=== PATIENT | male | born 1965 | race Caucasian/White ===

== ENCOUNTER 2018-04-20 11:24 | Observation (INO) ==
[2018-04-20] MEDS ORDERED: Acetaminophen 325 MG TABLET PO ONE (11:50)
--- NOTE | 2018-04-20 11:55 | Emergency Department Note ---
Disposition Clinical Impression: Cellulitis Qualifiers: Site of cellulitis: extremity Site of cellulitis of extremity: lower extremity Laterality: right Qualified Code(s): L03.115 - Cellulitis of right lower limb Disposition: Home, Self-Care Condition: Good Referrals: NONE,PCP [Non-Partnered Physician] - Forms: ED Satisfaction Letter Time of Disposition: 13:21 General Adult HPI - General Chief complaint: ED Fever Stated complaint: Fever/Chills Time Seen by Provider: 04/20/18 11:41 Source: patient Limitations: no limitations Nursing Notes Reviewed: Yes Vital Signs Reviewed: Yes - History of Present Illness HPI Narrative: This is a 52 year-old male with history of CAD s/p CABG who awoke 6 hours ago with fever/chills, associated with pain and redness throughout the right lower extremity (diffusely, hip to foot). He says the pain is similar to what he felt after veins were harvested from the extremity for CABG. He reports nausea but denies any vomiting. Also no cough or urinary symptoms. Pt Subjective Complaint: Fever, Right Lower Extremity Pain Onset (ago): hour(s) (6) Location: lower extremity Radiation: non-radiation Pain Severity: moderate Pain Scale: 7 Quality: burning Consistency: constant Improves with: nothing Worsens with: movement (ambulation) Associated symptoms: Reports: fever/chills. Denies: chest pain, cough, headaches, shortness of breath - Related Data Home Medications Medication Instructions Recorded Confirmed Calcipotriene [Dovonex] 1 appl TP DAILY PRN 10/20/17 04/20/18 Meloxicam [Mobic] 15 mg PO DAILY 10/20/17 04/20/18 Trazodone HCl 50 mg PO HS 10/20/17 04/20/18 Atorvastatin [Lipitor] 40 mg PO HS 04/20/18 04/20/18 Lansoprazole [Prevacid] 30 mg PO DAILY 04/20/18 04/20/18 Metoprolol Succinate [Toprol Xl] 25 mg PO DAILY 04/20/18 04/20/18 Previous Rx's Medication Instructions Recorded Amiodarone [Cordarone] 200 mg PO DAILY #30 tablet 10/26/17 Allergies Allergy/AdvReac Type Severity Reaction Status Date / Time eszopiclone [From [facility]] Allergy Rash Verified 04/20/18 11:27 All systems ED: reviewed and negative except as stated. Constitutional: Reports: fever, chills Cardiovascular: Denies: chest pain Respiratory: Denies: dyspnea Gastrointestinal: Reports: nausea. Denies: abdominal pain, vomiting Genitourinary: Denies: dysuria Musculoskeletal: Denies: joint swelling, arthralgia Integumentary: Reports: other (erythema) Neurological: Denies: headache Past Medical History - Past Medical History Medical history: Reports: pulmonary embolus Surgical history: Reports: cholecystectomy, other (Incisional herniorrhaphy 2) Psychiatric history: Reports: no psych history - Social History Smoking Status: Never smoker Smokeless Tobacco Status: No Alcohol use: Reports: none Drug use: Reports: none Physical Exam - General Limitations: no limitations General appearance: alert, in no apparent distress (comfortable-appearing) - Head Head exam: atraumatic, normocephalic - Eye Eye exam: Present: normal appearance. Absent: conjunctival injection - ENT ENT exam: normal exam - Neck Neck exam: Present: normal inspection. Absent: meningismus - Respiratory Respiratory exam: Present: normal lung sounds bilaterally. Absent: respiratory distress - Cardiovascular Cardiovascular exam: Present: regular rate, normal rhythm, normal heart sounds - Abdominal Exam Abdominal exam: Present: soft, Non-Tender. Absent: distention - Extremities Exam Extremities exam: Present: normal capillary refill, other (patch of erythema medial aspect of distal right thigh, faint erythema distal right mora). Absent : calf tenderness - Neurological Exam Neurological exam: Present: alert, oriented X3. Absent: motor sensory deficit - Psychiatric Psychiatric exam: Present: normal affect, normal mood - Skin Skin exam: Present: warm, dry, intact, erythema (several psoriasis plaques are noted, in addition to new areas of erythema noted above) Course - Reevaluation(s) Reevaluation #1: Updated patient on test results, plans for admission. Patient declined to give urine specimen. Says he will give it upstairs. Time: 13:20 - Consultations Consultation #1: Received call from cardiovascular imaging. DVT study was negative. Time: 13:18 Consultation #2: Reviewed case with Dr. Bowen, and patient accepted for admission. Time: 14:15 Vital Signs Temperature 100.7 F H 04/20/18 11:25 Pulse Rate 76 04/20/18 11:25 Respiratory Rate 18 04/20/18 11:25 Blood Pressure 131/79 04/20/18 11:25 O2 Sat by Pulse Oximetry 97 04/20/18 11:25 Temperature 100.8 F H 04/20/18 13:20 Pulse Rate 69 04/20/18 14:12 Respiratory Rate 16 04/20/18 14:12 Blood Pressure 123/65 04/20/18 14:12 O2 Sat by Pulse Oximetry 96 04/20/18 14:12 Oxygen Delivery Oxygen Delivery Room Air Medical Decision Making - MDM Narrative Medical decision making narrative: Patient presented with acute right lower extremity pain and fever. He has a couple of areas of erythema to the leg, in addition to psoriasis plaques. Distal pulses are normal. DDx includes cellulitis and lymphangitis. Will also r/ o DVT. - Lab Data Result diagrams: 04/20/18 12:05 04/20/18 12:05 Lab Results 04/20/18 04/20/18 04/20/18 Range/Units 12:05 12:05 12:05 WBC 17.1 H (4.3-11.1) K/mcL RBC 5.49 (4.19-5.50) M/mcL Hgb 16.6 (12.9-16.9) g/dL Hct 47.7 (37.5-50.1) % MCV 86.9 (83.0-100.0) fL MCH 30.2 (28.0-33.3) pg MCHC 34.8 (31.6-35.5) g/dL RDW 13.3 (11.5-14.5) % Plt Count 197 (140-400) K/mcL MPV 9.8 (9.4-12.4) fL Immature Gran % 1.0 (0-4) % Seg Neutrophils % 89.7 % Lymphocytes % 2.9 % Monocytes % 6.1 % Eosinophils % 0.1 % Basophils % 0.2 % Neutrophils # 15.3 H (1.6-8.9) K/mcL Lymphocytes # 0.5 L (0.6-4.6) K/mcL Monocytes # 1.1 (0.0-1.3) K/mcL Eosinophils # 0.0 (0.0-0.6) K/mcL Basophils # 0.0 (0.0-0.2) K/mcL ESR 3 (0-10) mm/hr PT 12.2 H (9.4-12.1) Seconds INR 1.1 Sodium (136-145) mEq/L Potassium (3.5-5.1) mEq/L Chloride (98-107) mEq/L Carbon Dioxide (23-29) mEq/L BUN (6-20) mg/dL Creatinine (0.70-1.30) mg/dL Est GFR ( Amer) (> 60) Est GFR (Non-Af Amer) (> 60) BUN/Creatinine Ratio (6-26) Glucose (70-105) mg/dL Calculated Osmolality (280-300) Lactic Acid (0.5-2.2) mmol/L Calcium (8.6-10.3) mg/dL 04/20/18 04/20/18 Range/Units 12:05 12:05 WBC (4.3-11.1) K/mcL RBC (4.19-5.50) M/mcL Hgb (12.9-16.9) g/dL Hct (37.5-50.1) % MCV (83.0-100.0) fL MCH (28.0-33.3) pg MCHC (31.6-35.5) g/dL RDW (11.5-14.5) % Plt Count (140-400) K/mcL MPV (9.4-12.4) fL Immature Gran % (0-4) % Seg Neutrophils % % Lymphocytes % % Monocytes % % Eosinophils % % Basophils % % Neutrophils # (1.6-8.9) K/mcL Lymphocytes # (0.6-4.6) K/mcL Monocytes # (0.0-1.3) K/mcL Eosinophils # (0.0-0.6) K/mcL Basophils # (0.0-0.2) K/mcL ESR (0-10) mm/hr PT (9.4-12.1) Seconds INR Sodium 138 (136-145) mEq/L Potassium 4.6 (3.5-5.1) mEq/L Chloride 104 (98-107) mEq/L Carbon Dioxide 27 (23-29) mEq/L BUN 16 (6-20) mg/dL Creatinine 1.19 (0.70-1.30) mg/dL Est GFR ( Amer) > 60 (> 60) Est GFR (Non-Af Amer) > 60 (> 60) BUN/Creatinine Ratio 13 (6-26) Glucose 135 H (70-105) mg/dL Calculated Osmolality 289 (280-300) Lactic Acid 2.3 H (0.5-2.2) mmol/L Calcium 9.4 (8.6-10.3) mg/dL - Radiology Data Radiology results reviewed: Yes I reviewed the patient's radiology results. XR/XR chest 1V portable IMPRESSION: 1. No evidence of consolidative pneumonia. 2. Persistently enlarged cardiomediastinal silhouette.
[2018-04-20 12:24] LABS: Basophils % 0.2 %; Eosinophils % 0.1 %; Hematocrit 47.7 % (37.5-50.1); Hemoglobin 16.6 g/dL (12.9-16.9); Lymphocytes # 0.5 K/mcL (0.6-4.6); Lymphocytes % 2.9 %; Mean Corpuscular HGB Conc 34.8 g/dL (31.6-35.5); Mean Corpuscular Hemoglobin 30.2 pg (28.0-33.3); Mean Corpuscular Volume 86.9 fL (83.0-100.0); Mean Platelet Volume 9.8 fL (9.4-12.4); Monocytes # 1.1 K/mcL (0.0-1.3); Monocytes % 6.1 %; Neutrophils # 15.3 K/mcL (1.6-8.9); Platelet Count 197 K/mcL (140-400); Red Blood Count 5.49 M/mcL (4.19-5.50); Red Cell Distribution Width 13.3 % (11.5-14.5); Segmented Neutrophils % 89.7 %
[2018-04-20 12:33] LABS: INR 1.1; Prothrombin Time 12.2 Seconds (9.4-12.1)
[2018-04-20 12:47] LABS: BUN/Creatinine Ratio 13 (6-26); Blood Urea Nitrogen 16 mg/dL (6-20); Calcium 9.4 mg/dL (8.6-10.3); Carbon Dioxide 27 mEq/L (23-29); Chloride 104 mEq/L (98-107); Glucose 135 mg/dL (70-105); Osmolality,Calculated 289 (280-300); Potassium 4.6 mEq/L (3.5-5.1); Sodium 138 mEq/L (136-145); eGFR For African Americans > 60 (> 60); eGFR For Non-African Americans > 60 (> 60)
[2018-04-20] MEDS ORDERED: *HR* Nalbuphine 10 MG/ML AMPUL IVP STA (13:23)
[2018-04-20] MEDS ORDERED: 0.9 % Sodium Chloride 1,000 ML IVC ONE (13:24)
[2018-04-20] MEDS ORDERED: Ibuprofen 600 MG TABLET PO ONE (13:44)
[2018-04-20] MEDS ORDERED: (Calcipotriene [Dovonex] 1 APPL) TP PRN (17:21)
[2018-04-20] MEDS ORDERED: Naloxone 0.4 MG/ML INJ IVP PRN (17:22)
[2018-04-20] MEDS ORDERED: Acetaminophen 325 MG TABLET PO PRN (17:22)
[2018-04-20] MEDS ORDERED: *HR* HYDROcodone/Acet 5/325 mg TABLET PO PRN (17:22)
--- NOTE | 2018-04-20 17:39 | Internal Med History&Physical ---
Date of Encounter: 04/20/18 Time of Encounter: 16:35 Internal Medicine - H&P: HPI Admitted From: Emergency Dept Plans for Post Hospital Care: Home History of present illness: Mr. Munoz is a 52 year old male Pt states he is s/p open heart surgery 6 months ago. Reports that he woke up febrile this monrning. He checked his temp and it was 102.6. Reports pain RLE shooting up t his R thigh. 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 Has some blisters lower chin of RLE which it states started a few weeks ago. States he had similar blister on R hand which was swollen but eventually resolved without intervention. Pt denies any bites scratches or open wounds. Reports nausea but denies vomiting. Past Med Surg Social Fam HX - Past Medical History Medical history: pulmonary embolus Additional medical history: Open heart surgery, Psychiatric history: no psych history - Past Surgical History Surgical History: cholecystectomy, other Additional surgical history: open heart - Social History Smoking Status: Never smoker Smokeless Tobacco Status: No Alcohol use: none Drug use: none - Family History Mother Family Member Ethnicity: Non- Living Status: Still Living Hx Family Cardiac Disorders: Yes (VT, CAD) Hx Family Respiratory Disorders: (COPD) Hx Family Cancer: No Hx Family GI Disorders: No Hx Family Endocrine Disorder: No Hx Family Neuromuscular Disorders: No Hx Family Neurologic Disorders: No Hx Family HEENT Disorders: No Hx Family Autoimmune Disorders: No Father Family Member Ethnicity: Non- Living Status: Hx Family Cardiac Disorders: Yes (VT, CAD) Brother Family Member Ethnicity: Non- Living Status: Still Living Internal Medicine - H&P: Meds Calcipotriene [Dovonex] 1 appl TP DAILY PRN 10/20/17 [History] Meloxicam [Mobic] 15 mg PO DAILY 10/20/17 [History] Trazodone HCl 50 mg PO HS 10/20/17 [History] Amiodarone [Cordarone] 200 mg PO DAILY #30 tablet 10/26/17 [Rx] Atorvastatin [Lipitor] 40 mg PO HS 04/20/18 [History] Lansoprazole [Prevacid] 30 mg PO DAILY 04/20/18 [History] Metoprolol Succinate [Toprol Xl] 25 mg PO DAILY 04/20/18 [History] 3 Allergy/AdvReac Type Severity Reaction Status Date / Time [facility] Allergy Rash Verified 04/20/18 11:27 All Systems PM: A 10-system review of systems was performed and is negative for pertinent findings except as documented above in the HPI. - Constitutional Vitals: Temp Pulse Resp BP Pulse Ox 98.9 F 63 16 105/58 97 04/20/18 16:16 04/20/18 16:16 04/20/18 16:16 04/20/18 16:16 04/20/18 16:16 General appearance: Present: A&O X 3, no acute distress - Head Head exam: Present: atraumatic, normocephalic - Eye Eye exam: Present: PERRL, conjuntiva pink, sclera anicteric Pupils: Present: PERRL - Neck Neck exam general surgery: Present: supple, trachea midline. Absent: lymphadenopathy - Respiratory Respiratory exam: Present: CTAB. Absent: accessory muscle use, rales, rhonchi, wheezes - Cardiovascular Cardiovascular exam: Present: RRR, +S1, +S2. Absent: diastolic murmur, gallop, rubs, systolic murmur - GI/Abdominal GI/Abdominal exam: Present: normal bowel sounds, soft, no peritoneal signs. Absent: distended, tenderness - Extremities Exam Extremities exam: Present: tenderness, warm, radial pulses palpable and symmetrical. Absent: calf tenderness, cyanotic, pedal edema Additional comments: redness noted around incisions form recent RLE great saphenous vein harvest for open heart. Some swelling and painful to touch. - Neurological Exam Neurological exam: Present: CN II-XII intact, oriented X3, no focal deficits. Absent: pronater drift, facial droop, speech deficit - Skin Skin exam: Present: dry, intact Internal Med - H&P Results - Labs CBC & Chem 7: 04/20/18 12:05 04/20/18 12:05 - Assessment and plan (1) Cellulitis Current Visit: Yes Status: Acute Assessment and plan: WBC 17.7 and temp 99.7. Tylenol prn fever. Will place on Zosyn for now and monitor for response. Venous doppler done in ED in light of pt's hx of PE and results of that is still pending. Qualifiers: Site of cellulitis: extremity Site of cellulitis of extremity: lower extremity Laterality: right Qualified Code(s): L03.115 - Cellulitis of right lower limb (2) CAD (coronary artery disease) Current Visit: Yes Status: Chronic Assessment and plan: Statin, Toprol XL. s/p open heart surgery. Qualifiers: Coronary Disease-Associated Artery/Lesion type: [place] artery [place] vs. transplanted heart: [place] heart Associated angina: without angina Qualified Code(s): I25.10 - Atherosclerotic heart disease of [place] coronary artery without angina pectoris - Time Spent With Patient Total time spent is greater than 50% in coordination of care (as documented) at patient's floor/unit and/or counseling patient: 25 - 35 minutes
[2018-04-20] MEDS: 0.9 % Sodium Chloride 1,000 ML IVC SCH (21:54)
[2018-04-20] MEDS: traZODone 50 MG TABLET PO SCH (21:54)
[2018-04-21] MEDS: Piperacillin/Tazobactam 3.375 GM in 0.9 % Sodium Chloride Mini Bag 100 ML IVPB SCH ×3 (00:25→17:02)
[2018-04-21 07:50] LABS: Basophils % 0.2 %; Eosinophils % 0.4 %; Hematocrit 39.4 % (37.5-50.1); Immature Granulocytes % 0.5 % (0-4); Lymphocytes # 1.3 K/mcL (0.6-4.6); Mean Corpuscular HGB Conc 33.8 g/dL (31.6-35.5); Mean Corpuscular Hemoglobin 29.5 pg (28.0-33.3); Mean Corpuscular Volume 87.4 fL (83.0-100.0); Mean Platelet Volume 10.3 fL (9.4-12.4); Monocytes % 9.4 %; Neutrophils # 7.8 K/mcL (1.6-8.9); Platelet Count 157 K/mcL (140-400); Red Blood Count 4.51 M/mcL (4.19-5.50); Red Cell Distribution Width 13.7 % (11.5-14.5); Segmented Neutrophils % 76.5 %
[2018-04-21 08:02] LABS: Hemoglobin 13.3 g/dL (12.9-16.9)
[2018-04-21] MEDS: Aspirin Enteric Coated 81 MG Tablet PO SCH (09:06)
[2018-04-21] MEDS: *HR* Amiodarone 200 MG TABLET PO SCH (09:06)
[2018-04-21] MEDS: Metoprolol XL (24 HR) Succ 25 MG TAB.ER.24H PO SCH (11:23)
[2018-04-21] MEDS: 0.9 % Sodium Chloride 1,000 ML IVC SCH ×2 (15:41→17:02)
--- NOTE | 2018-04-21 19:25 | Internal Med Progress Note ---
Date of Encounter: 04/21/18 Time of Encounter: 10:45 - Assessment and plan (1) Sepsis Current Visit: Yes Status: Acute Assessment and plan: Secondary to cellulitis. Leukocytosis has resolved. Patient was febrile this morning, patient is normotensive and no tachycardia noted. Lactic was elevated on admission, has returned to normal. Continue to monitor labs and vital signs patient condition. Qualifiers: Sepsis type: sepsis due to unspecified organism Qualified Code(s): A41.9 - Sepsis, unspecified organism (2) CAD (coronary artery disease) Current Visit: Yes Status: Chronic Assessment and plan: Patient is status post CABG. Continue statin, beta fiordaliza. Continue telemetry. Patient denies any chest pain. Qualifiers: Coronary Disease-Associated Artery/Lesion type: unspecified vessel or lesion type [place] vs. transplanted heart: [place] heart Associated angina: angina presence unspecified Qualified Code(s): I25.10 - Atherosclerotic heart disease of [place] coronary artery without angina pectoris (3) Cellulitis Current Visit: Yes Status: Acute Assessment and plan: SIRS criteria resolved. Area of redness extending beyond marked borders and pt reports increasing pain. Continue Zosyn and add Vancomyin, pharmacy to dose. Venous doppler of BLE without DVT or SVT. Qualifiers: Site of cellulitis: extremity Site of cellulitis of extremity: lower extremity Laterality: right Qualified Code(s): L03.115 - Cellulitis of right lower limb (4) DVT prophylaxis Current Visit: Yes Status: Acute Assessment and plan: Heparin SQ TID. (5) GERD (gastroesophageal reflux disease) Current Visit: Yes Status: Chronic Assessment and plan: Chronic. Continue home medications. Qualifiers: Esophagitis presence: esophagitis presence not specified Qualified Code(s) : K21.9 - Gastro-esophageal reflux disease without esophagitis - Time Spent With Patient Total time spent is greater than 50% in coordination of care (as documented) at patient's floor/unit and/or counseling patient: less than 15 minutes - Subjective Interval history: Patient was seen and assessed the bedside at 1045. Patient indicates continued leg pain rating and 2-3/10. Area of redness has extended beyond the borders. We will add vancomycin. Patient denies any headache, dizziness or blurred vision, he denies any abdominal pain nausea vomiting or diarrhea. Patient denied discussed plan of care including patient being here for 2-3 more days, he was agreeable. - Constitutional Vitals: Temp Pulse Resp BP Pulse Ox 98.2 F 52 20 123/71 98 04/21/18 15:25 04/21/18 15:25 04/21/18 15:25 04/21/18 15:25 04/21/18 15:25 General appearance: Present: cooperative, A&O X 3, pleasant, no acute distress, answers questions appropriately - Head Head exam: Present: atraumatic, normal inspection, normocephalic - Eye Eye exam: Present: normal appearance, conjuntiva pink, sclera anicteric - Neck Neck exam general surgery: Present: supple, trachea midline. Absent: lymphadenopathy, tenderness - Respiratory Respiratory exam: Present: CTAB. Absent: accessory muscle use, chest wall tenderness, rales, respiratory distress, rhonchi, wheezes - Cardiovascular Cardiovascular exam: Present: RRR, +S1, +S2. Absent: diastolic murmur, gallop, rubs, systolic murmur - GI/Abdominal GI/Abdominal exam: Present: normal bowel sounds, soft. Absent: distended, hepatomegaly, tenderness - Extremities Exam Extremities exam: Present: normal capillary refill, normal inspection, warm, radial pulses palpable and symmetrical. Absent: calf tenderness, cyanotic, pedal edema, tenderness - Neurological Exam Neurological exam: Present: alert, oriented X3, no focal deficits. Absent: facial droop, speech deficit - Skin Skin exam: Present: dry, erythema, intact, normal color, warm. Absent: rash Internal Medicine: Result - Labs CBC & Chem 7: 04/21/18 07:15 04/20/18 12:05 Labs: Short CBC 04/21/18 Range/Units 07:15 WBC 10.1 (4.3-11.1) K/mcL Hgb 13.3 D (12.9-16.9) g/dL Hct 39.4 (37.5-50.1) % Plt Count 157 (140-400) K/mcL Neutrophils # 7.8 (1.6-8.9) K/mcL - ABG Interpretation ABG results: PT/INR, D-dimer PT 12.2 Seconds (9.4-12.1) H 04/20/18 12:05 Consult Discharge Plan - Plan Referrals: Mor,Kamlesh Baker MD [Primary Care Provider] -
[2018-04-21] MEDS: *HR* Heparin 5,000 UNIT/ML VIAL SQ SCH (20:31)
[2018-04-21] MEDS: traZODone 50 MG TABLET PO SCH (20:31)
[2018-04-22] MEDS: Piperacillin/Tazobactam 3.375 GM in 0.9 % Sodium Chloride Mini Bag 100 ML IVPB SCH ×3 (00:35→16:35)
[2018-04-22 01:20] LABS: Basophils % 0.5 %; Eosinophils # 0.2 K/mcL (0.0-0.6); Eosinophils % 3.3 %; Hematocrit 41.1 % (37.5-50.1); Hemoglobin 13.6 g/dL (12.9-16.9); Immature Granulocytes % 0.7 % (0-4); Lymphocytes # 1.3 K/mcL (0.6-4.6); Lymphocytes % 21.1 %; Mean Corpuscular HGB Conc 33.1 g/dL (31.6-35.5); Mean Corpuscular Volume 87.6 fL (83.0-100.0); Mean Platelet Volume 10.2 fL (9.4-12.4); Monocytes # 0.7 K/mcL (0.0-1.3); Monocytes % 12.1 %; Neutrophils # 3.8 K/mcL (1.6-8.9); Nucleated Red Blood Cells 0.3 /100 WBC (0); Platelet Count 147 K/mcL (140-400); Red Blood Count 4.69 M/mcL (4.19-5.50); Red Cell Distribution Width 13.7 % (11.5-14.5); Segmented Neutrophils % 62.3 %
[2018-04-22 01:38] LABS: BUN/Creatinine Ratio 12 (6-26); Blood Urea Nitrogen 11 mg/dL (6-20); Calcium 8.3 mg/dL (8.6-10.3); Carbon Dioxide 21 mEq/L (23-29); Chloride 112 mEq/L (98-107); Glucose 125 mg/dL (70-105); Osmolality,Calculated 293 (280-300); Potassium 3.8 mEq/L (3.5-5.1); Sodium 141 mEq/L (136-145); eGFR For African Americans > 60 (> 60); eGFR For Non-African Americans > 60 (> 60)
[2018-04-22] MEDS: *HR* Heparin 5,000 UNIT/ML VIAL SQ SCH ×3 (06:08→21:42)
[2018-04-22] MEDS: *HR* Amiodarone 200 MG TABLET PO SCH (08:38)
[2018-04-22] MEDS: Aspirin Enteric Coated 81 MG Tablet PO SCH (08:39)
[2018-04-22] MEDS: Metoprolol XL (24 HR) Succ 25 MG TAB.ER.24H PO SCH (08:39)
[2018-04-22] MEDS: 0.9 % Sodium Chloride 1,000 ML IVC SCH ×2 (09:41→16:34)
--- NOTE | 2018-04-22 16:57 | Internal Med Progress Note ---
Date of Encounter: 04/22/18 Time of Encounter: 10:10 - Assessment and plan (1) Sepsis Current Visit: Yes Status: Acute Assessment and plan: Resolved. Secondary to cellulitis. Leukocytosis has resolved. Patient has remained afebrile for greater than 24 hours, patient is normotensive and no tachycardia noted. Lactic was elevated on admission, has returned to normal. Continue to monitor labs and vital signs patient condition. Qualifiers: Sepsis type: sepsis due to unspecified organism Qualified Code(s): A41.9 - Sepsis, unspecified organism (2) CAD (coronary artery disease) Current Visit: Yes Status: Chronic Assessment and plan: Patient is status post CABG 2 months ago. Continue statin, beta fiordaliza. Continue telemetry. Qualifiers: Coronary Disease-Associated Artery/Lesion type: unspecified vessel or lesion type [place] vs. transplanted heart: [place] heart Associated angina: angina presence unspecified Qualified Code(s): I25.10 - Atherosclerotic heart disease of [place] coronary artery without angina pectoris (3) Cellulitis Current Visit: Yes Status: Acute Assessment and plan: SIRS criteria resolved. Area of redness improved, pain has improved. Continue Zosyn and Vancomyin, will look at po antibiotic for discharge tomorrow. Venous doppler of BLE without DVT or SVT. Qualifiers: Site of cellulitis: extremity Site of cellulitis of extremity: lower extremity Laterality: right Qualified Code(s): L03.115 - Cellulitis of right lower limb (4) DVT prophylaxis Current Visit: Yes Status: Acute Assessment and plan: Heparin SQ (5) GERD (gastroesophageal reflux disease) Current Visit: Yes Status: Chronic Assessment and plan: Chronic. stable. Continue home medications. Qualifiers: Esophagitis presence: esophagitis presence not specified Qualified Code(s) : K21.9 - Gastro-esophageal reflux disease without esophagitis - Time Spent With Patient Total time spent is greater than 50% in coordination of care (as documented) at patient's floor/unit and/or counseling patient: less than 15 minutes - Subjective Interval history: Patient was seen and assessed the bedside at 1010. Patient indicates improved leg pain as well as decreasing redness and swelling. Patient denies any headache , dizziness or blurred vision, he denies any abdominal pain nausea vomiting or diarrhea. Patient denied discussed plan of care including patient being here for 2-3 more days, he was agreeable. - Constitutional Vitals: Temp Pulse Resp BP Pulse Ox 97.7 F 123 13 139/73 82 04/22/18 15:17 04/22/18 15:17 04/22/18 15:17 04/22/18 15:17 04/22/18 15:17 General appearance: Present: cooperative, A&O X 3, pleasant, no acute distress, answers questions appropriately - Head Head exam: Present: atraumatic, normal inspection, normocephalic - Eye Eye exam: Present: normal appearance, conjuntiva pink, sclera anicteric - Neck Neck exam general surgery: Present: supple, trachea midline. Absent: lymphadenopathy - Respiratory Respiratory exam: Present: CTAB. Absent: accessory muscle use, rales, rhonchi, wheezes - Cardiovascular Cardiovascular exam: Present: RRR, +S1, +S2. Absent: diastolic murmur, gallop, rubs, systolic murmur - GI/Abdominal GI/Abdominal exam: Present: normal bowel sounds, soft. Absent: distended, hepatomegaly, tenderness - Extremities Exam Extremities exam: Present: normal capillary refill, normal inspection, warm, radial pulses palpable and symmetrical. Absent: calf tenderness, cyanotic, pedal edema - Neurological Exam Neurological exam: Present: alert, oriented X3, no focal deficits, strengths equal and symetr throughout. Absent: altered, facial droop, speech deficit - Skin Skin exam: Present: dry, normal color, warm. Absent: intact, rash Internal Medicine: Result - Labs CBC & Chem 7: 04/22/18 00:50 04/22/18 00:50 Labs: Short CBC 04/22/18 Range/Units 00:50 WBC 6.0 (4.3-11.1) K/mcL Hgb 13.6 (12.9-16.9) g/dL Hct 41.1 (37.5-50.1) % Plt Count 147 (140-400) K/mcL Neutrophils # 3.8 (1.6-8.9) K/mcL BMP 04/22/18 00:50 Sodium 141 Potassium 3.8 Chloride 112 H Carbon Dioxide 21 L BUN 11 Creatinine 0.91 Glucose 125 H Calcium 8.3 L - ABG Interpretation ABG results: PT/INR, D-dimer PT 12.2 Seconds (9.4-12.1) H 06/05/18 12:05 Consult Discharge Plan - Plan Referrals: Kamlesh Juares MD [Primary Care Provider] -
[2018-04-22] MEDS: traZODone 50 MG TABLET PO SCH (21:43)
[2018-04-23] MEDS: Piperacillin/Tazobactam 3.375 GM in 0.9 % Sodium Chloride Mini Bag 100 ML IVPB SCH ×3 (01:00→08:10)
[2018-04-23] MEDS: 0.9 % Sodium Chloride 1,000 ML IVC SCH (04:58)
[2018-04-23] MEDS: *HR* Heparin 5,000 UNIT/ML VIAL SQ SCH (04:58)
[2018-04-23 06:11] LABS: Basophils % 0.6 %; Eosinophils # 0.2 K/mcL (0.0-0.6); Eosinophils % 4.7 %; Hematocrit 43.6 % (37.5-50.1); Hemoglobin 14.4 g/dL (12.9-16.9); Immature Granulocytes % 0.8 % (0-4); Lymphocytes # 1.2 K/mcL (0.6-4.6); Lymphocytes % 25.6 %; Mean Corpuscular Hemoglobin 28.9 pg (28.0-33.3); Mean Corpuscular Volume 87.6 fL (83.0-100.0); Mean Platelet Volume 10.5 fL (9.4-12.4); Monocytes # 0.6 K/mcL (0.0-1.3); Neutrophils # 2.7 K/mcL (1.6-8.9); Platelet Count 166 K/mcL (140-400); Red Blood Count 4.98 M/mcL (4.19-5.50); Red Cell Distribution Width 13.5 % (11.5-14.5); Segmented Neutrophils % 56.3 %
[2018-04-23 06:24] LABS: BUN/Creatinine Ratio 11 (6-26); Blood Urea Nitrogen 11 mg/dL (6-20); Calcium 8.7 mg/dL (8.6-10.3); Carbon Dioxide 24 mEq/L (23-29); Chloride 109 mEq/L (98-107); Glucose 111 mg/dL (70-105); Osmolality,Calculated 292 (280-300); Potassium 3.9 mEq/L (3.5-5.1); Sodium 141 mEq/L (136-145); eGFR For African Americans > 60 (> 60); eGFR For Non-African Americans > 60 (> 60)
[2018-04-23] MEDS: Metoprolol XL (24 HR) Succ 25 MG TAB.ER.24H PO SCH (08:11)
[2018-04-23] MEDS: Aspirin Enteric Coated 81 MG Tablet PO SCH (08:11)
[2018-04-23] MEDS: *HR* Amiodarone 200 MG TABLET PO SCH (08:11)
[2018-04-23 10:31] VITALS: BP 131/83
--- NOTE | 2018-04-23 13:27 | Discharge Summary ---
- NOTES TO OUTPATIENT PROVIDER Notes to Outpatient Provider: Pt was admitted for cellulitis. He was treated with Vanco and Zosyn, sent home on Bactrim DS. Pt reports that cellulitis started with blisters, unclear etiology. We have entered a web request for a dermatology appointment. Orders not resulted at time of discharge: Pending orders 04/24/18 04:00 Basic Metabolic Panel AM 0400 Complete Blood Count [HEME] AM 0400 Date of Encounter: 04/23/18 Time of Encounter: 10:15 - Discharge Diagnosis (1) Sepsis Priority: Secondary Status: Resolved Qualifiers: Sepsis type: sepsis due to unspecified organism Qualified Code(s): A41.9 - Sepsis, unspecified organism (2) CAD (coronary artery disease) Priority: Secondary Status: Chronic Assessment and Plan: No chest pain. Continue home medications. Qualifiers: Coronary Disease-Associated Artery/Lesion type: unspecified vessel or lesion type [place] vs. transplanted heart: [place] heart Associated angina: angina presence unspecified Qualified Code(s): I25.10 - Atherosclerotic heart disease of [place] coronary artery without angina pectoris (3) Cellulitis Priority: Secondary Status: Acute Assessment and Plan: Improving. Pt will be sent home with Bactrim DS BID x 10 days. Pt has requested to see dermatology due to blisters that erupted prior to cellulitis. Web request entered. Qualifiers: Site of cellulitis: extremity Site of cellulitis of extremity: lower extremity Laterality: right Qualified Code(s): L03.115 - Cellulitis of right lower limb (4) DVT prophylaxis Priority: Secondary Status: Acute Assessment and Plan: Heparin SQ TID (5) GERD (gastroesophageal reflux disease) Priority: Secondary Status: Chronic Assessment and Plan: Chronic. Continue home medications. Qualifiers: Esophagitis presence: esophagitis presence not specified Qualified Code(s) : K21.9 - Gastro-esophageal reflux disease without esophagitis Hospital course: Mr. Munoz is a 52 year old male with past medical history of non-STEMI, GERD, CAD. Patient admitted to the hospital with cellulitis right lower extremity. He reported pain to medial right lower extremity. Dopplers negative for DVTs or SVT. Patient was initially treated with IV Zosyn, did not seem to improve significantly and redness extended beyond the marked areas. Vancomycin was added and patient responded well. He is going to be discharged with Bactrim DS , take 1 tablet twice daily for 10 days. He has been instructed to follow-up with primary care within the next 7 days for recheck. He also been instructed to return immediately if he begins having fever or chills or worsening symptoms. Patient was treated for sepsis on arrival, symptoms have resolved and patient is back to his baseline. Labs and vitals are stable and within normal limits. He is appropriate and stable for discharge. Discharge discussed with: family, nurse - Time Spent with Patient Total time spent providing and/or coordinating discharge services: Less than 30 minutes - Discharge Medications Prescriptions: Sulfamethoxazole/Trimeth DS [Bactrim DS] 1 each PO BID #20 tablet Home Medications: Calcipotriene [Dovonex] 1 appl TP DAILY PRN 10/20/17 [History] Meloxicam [Mobic] 15 mg PO DAILY 10/20/17 [History] Trazodone HCl 50 mg PO HS 10/20/17 [History] Amiodarone [Cordarone] 200 mg PO DAILY #30 tablet 10/26/17 [Rx] Aspirin [Lo-Dose Aspirin EC] 81 mg PO DAILY 04/20/18 [History] Atorvastatin [Lipitor] 40 mg PO HS 04/20/18 [History] Lansoprazole [Prevacid] 30 mg PO DAILY 04/20/18 [History] Metoprolol Succinate [Toprol Xl] 25 mg PO DAILY 04/20/18 [History] Sulfamethoxazole/Trimeth DS [Bactrim DS] 1 each PO BID #20 tablet 04/23/18 [Rx] Allergies/Adverse Reactions: 3 Allergy/AdvReac Type Severity Reaction Status Date / Time eszopiclone [From Lunesta] Allergy Rash Verified 04/20/18 11:27 Date of admission: 04/20/18 15:25 Primary care physician: Kamlesh Juares MD Discharging clinician: Mignon Gutierrez Anticipated date of discharge: 04/23/18 - Constitutional Vitals: Temp Pulse Resp BP Pulse Ox 97.9 F 54 16 131/83 98 04/23/18 10:31 04/23/18 10:31 04/23/18 10:31 04/23/18 10:31 04/23/18 10:31 General appearance: Present: cooperative, A&O X 3, pleasant, no acute distress, answers questions appropriately - Head Head exam: Present: atraumatic, normal inspection, normocephalic - Eye Eye exam: Present: normal appearance, conjuntiva pink, sclera anicteric - Neck Neck exam general surgery: Present: supple, trachea midline. Absent: lymphadenopathy, tenderness - Respiratory Respiratory exam: Present: CTAB. Absent: accessory muscle use, chest wall tenderness, rales, rhonchi, wheezes - Cardiovascular Cardiovascular exam: Present: RRR, +S1, +S2. Absent: diastolic murmur, gallop, rubs, systolic murmur - GI/Abdominal GI/Abdominal exam: Present: normal bowel sounds, soft. Absent: distended, hepatomegaly, tenderness - Extremities Exam Extremities exam: Present: normal capillary refill, normal inspection, warm, radial pulses palpable and symmetrical. Absent: calf tenderness, cyanotic, pedal edema, tenderness - Neurological Exam Neurological exam: Present: alert, oriented X3, no focal deficits. Absent: facial droop, speech deficit - Skin Skin exam: Present: dry, intact, normal color, warm. Absent: rash - Patient Status Disposition: Home, Self-Care Condition: Good Functional capacity at discharge: independent ambulation Overall status at discharge: patient is back to baseline - Discharge Instructions Follow Up With: Kamlesh Juares MD [Primary Care Provider] - (please call and make a follow up appointment with youir primary care physician within 10 days. [phone], Thank you. ) Zunilda Guevara, PAC [Physician [employer]] - (Your appointment has been webrequested. Our offices will call you with an appointment time and date. Thank You. ) Additional Instructions: Please follow up with your PCP in the next 7 days for a recheck. If you be come more ill, begin having fevers, chills, or increased leg pain, return to the ER immediately. Take your medications exactly as prescribed. Return to the ER as needed for any other problems or concerns, or if your symptoms return or worsen. Resume your other home medications and return to your normal diet and activities. The dermatology office has your information, they will be calling you for an appointment. - Diet and Activity Activity: increase activity as tolerated Diet: advance to your usual diet
[2018-04-23] MEDS ORDERED: Aminoglycoside Consult 1 EACH MC ONE (14:49)
== END 2018-04-23 14:50 | disposition home or self-care (01) ==
LOC: 3BNU 11:24 → EMEROO 11:24 → SUATTDRO 15:25 → 3BNU 15:34
PROVIDERS: ADMIT Internal Medicine Cardiovascular Disease; ATTEND Registered Nurse